=== PATIENT | female | born 1940 | race Caucasian/White ===

== ENCOUNTER → 2019-03-11 | Outpatient (CLI) | payer MEDICARE ==
[~2019-03-11] MED LIST: ASCO60LO10 PO; CHOL200074 PO; COD1CAPS7 PO; FISH1CAP49 PO; FLUT15.88 NS; FLUT1DIS4 IH; GADODIAMIDE 10 MMOL/20 ML VIAL IV ONE; L.AC1CAP6 PO; MULT-1203 PO; THEO400T3 PO; THIA50TA13 PO; VITA100C24 PO; [UNRECOGNIZED DRUG - CODE] PO
== END | disposition home or self-care (01) ==
LOC: RAH 10:00
PROVIDERS: ATTEND Internal Medicine
DX: S09.90XA Unspecified injury of head, initial encounter (principal); G31.9 Degenerative disease of nervous system, unspecified; J32.0 Chronic maxillary sinusitis; I69.011 Memory deficit following nontraumatic subarachnoid hemorrhage; X58.XXXA Exposure to other specified factors, initial encounter; Y93.89 Activity, other specified; Y92.89 Other specified places as the place of occurrence of the external cause; Y99.8 Other external cause status
CPT/HCPCS: 70553; A9579